=== PATIENT | male | born 1990 | race American Indian/Alaskan Native ===

== ENCOUNTER 2021-03-06 00:09 | Emergency (ER) | payer SELFPAY ==
[2021-03-06] MEDS ORDERED: IBUPROFEN 800 MG TAB PO ONE (02:02)
--- NOTE | 2021-03-06 02:29 | XRay Report ---
RIGHT KNEE 3 VIEWS INDICATION / CLINICAL INFORMATION: Right knee pain/injury. COMPARISON: None available. FINDINGS: BONES and JOINT(S): No acute fracture or subluxation. No significant arthritis. SOFT TISSUES: No significant abnormality. ADDITIONAL FINDINGS: None. IMPRESSION: 1. No acute findings. Signer Name: Suraj Steen MD Signed: 03/06/2021 2:24 AM Workstation Name: [id number]
[2021-03-06] MEDS ORDERED: MORPHINE 4 MG/1 ML INJ IM STA (02:56)
--- NOTE | 2021-03-06 03:05 | Emergency Department Report ---
ED Lower Extremity HPI - General Chief Complaint: Extremity Injury, Lower Stated Complaint: RT KNEE PAIN Time Seen by Provider: 03/06/21 02:31 Source: patient Mode of arrival: Ambulatory Limitations: No Limitations - History of Present Illness Initial Comments: 30-year-old with some appropriate bowel prep resents emerged department complaining of pain to the right knee after a tackling injury while at practice. States that his foot was planted in the turf he was struck by the right side of his knee with the shoulder pads of a tackling individual causing his knee to go anterolateral movement. He states he was able to finish practice with some mild pain and on the ride home his knee feels stiff and swollen to the point where the tape pain was more severe and he was unable to stand and ambulated to call ambulance to be transported hospital for further evaluation treatment options MD Complaint: knee injury -: Sudden Injury: Knee: Right Severity: mild Worsens With: nothing Associated Symptoms: snap/pop sensation, swelling, unable to bear weight - Related Data Previous Rx's Medication Instructions Recorded Last Taken Type Acetaminophen/Codeine [Tylenol 1 tab PO Q6H PRN #20 tab 03/06/21 Unknown Rx /Codeine # 3 tab] Ketorolac [Toradol] 10 mg PO Q6H PRN #20 tablet 03/06/21 Unknown Rx Allergies Allergy/AdvReac Type Severity Reaction Status Date / Time No Known Allergies Allergy Unverified 03/06/21 01:51 ED Review of Systems ROS: Stated complaint: RT KNEE PAIN Other details as noted in HPI Comment: All other systems reviewed and negative ED Past Medical Hx - Past Medical History Previous Medical History?: No - Surgical History Past Surgical History?: No - Social History Smoking Status: Never Smoker Substance Use Type: None - Medications Home Medications: Home Medications Medication Instructions Recorded Confirmed Last Taken Type Acetaminophen/Codeine [Tylenol 1 tab PO Q6H PRN #20 tab 03/06/21 Unknown Rx /Codeine # 3 tab] Ketorolac [Toradol] 10 mg PO Q6H PRN #20 tablet 03/06/21 Unknown Rx ED Physical Exam - General Limitations: No Limitations General appearance: alert, in no apparent distress - Head Head exam: Present: atraumatic, normocephalic - Eye Eye exam: Present: normal appearance, PERRL, EOMI Pupils: Present: normal accommodation - ENT ENT exam: Present: normal exam, normal orophraynx, mucous membranes moist, TM's normal bilaterally - Neck Neck exam: Present: normal inspection, full ROM - Respiratory Respiratory exam: Present: normal lung sounds bilaterally. Absent: respiratory distress - Cardiovascular Cardiovascular Exam: Present: regular rate, normal rhythm. Absent: bradycardia, tachycardia, systolic murmur, diastolic murmur, rubs, gallop - GI/Abdominal GI/Abdominal exam: Present: soft, normal bowel sounds. Absent: tenderness, guarding, rebound, organomegaly, mass, pulsatile mass, hernia - Rectal Rectal exam: Present: deferred - Extremities Exam Extremities exam: Present: normal inspection - Expanded Lower Extremity Exam Right Knee exam: Present: tenderness, swelling, pain/laxity with valgus, pain/laxity with varus - Back Exam Back exam: Present: normal inspection - Neurological Exam Neurological exam: Present: alert, oriented X3 - Psychiatric Psychiatric exam: Present: normal affect, normal mood - Skin Skin exam: Present: warm, dry, intact, normal color. Absent: rash ED Course Vital Signs 03/06/21 01:40 Temperature 97.6 F Pulse Rate 61 Respiratory 18 Rate Blood Pressure 131/77 O2 Sat by Pulse 100 Oximetry ED Lower Extremity MDM - Radiology Data Radiology results: report reviewed [address] [place] [id number] XRay Report Signed Patient: JESSY AUSTIN MR#: [id number] : 1990 Acct:[id number] Age/Sex: 30 / M ADM Date: 03/06/21 Loc: ED Attending Dr: Ordering Physician: RICHARD SOLIS MD Date of Service: 03/06/21 Procedure(s): XR knee 3V RT Accession Number(s): [id number] cc: ED MD IRMA Fluoro Time In Minutes: RIGHT KNEE 3 VIEWS INDICATION / CLINICAL INFORMATION: Right knee pain/injury. COMPARISON: None available. FINDINGS: BONES and JOINT(S): No acute fracture or subluxation. No significant arthritis. SOFT TISSUES: No significant abnormality. ADDITIONAL FINDINGS: None. IMPRESSION: 1. No acute findings. Signer Name: Suraj Steen MD Signed: 03/06/2021 2:24 AM Workstation Name: [id number] Transcribed By: WAN Dictated By: Suraj Steen MD Electronically Authenticated By: Suraj Steen MD Signed Date/Time: 03/06/21223 DD/ 3 TD/TT: Print Critical care attestation.: If time is entered above; I have spent that time in minutes in the direct care of this critically ill patient, excluding procedure time. ED Disposition Clinical Impression: Knee pain, Knee internal derangement Disposition: TO HOME OR SELFCARE Is pt being admited?: No Does the pt Need Aspirin: No Condition: Stable Instructions: How to Use Cold Therapy, [id number], Acute Knee Pain, Adult, How to Use a Knee Brace Prescriptions: Ketorolac [Toradol] 10 mg PO Q6H PRN #20 tablet PRN Reason: Pain Acetaminophen/Codeine [Tylenol /Codeine # 3 tab] 1 tab PO Q6H PRN #20 tab PRN Reason: Pain , Severe (7-10) Referrals: [facility] [Provider Group] - 3-5 Days MICK TREVINO MD [Staff Physician] - 3-5 Days
[2021-03-06 05:48] VITALS: BP 122/67
== END 2021-03-06 05:46 | disposition home or self-care (01) ==
LOC: ED 00:09
DX: M23.91 Unspecified internal derangement of right knee (principal); Z79.899 Other long term (current) drug therapy
CPT/HCPCS: 73562; 96372; 99283; J2270